=== PATIENT | female | born 1945 | race Caucasian/White ===

== ENCOUNTER 2017-01-26 09:09 | Emergency (ER) | payer MEDICARE ==
[2017-01-26] MEDS ORDERED: ACET-704 PO (09:39)
[2017-01-26] MEDS ORDERED: GABA600T2 PO ×2 (09:39→09:48)
[2017-01-26] MEDS ORDERED: LISI1TAB3 PO (09:40)
[2017-01-26] MEDS ORDERED: MELO15TA23 PO (09:48)
[2017-01-26] MEDS ORDERED: LISI1TAB5 PO (09:48)
[2017-01-26] MEDS ORDERED: METO50TA29 PO (09:48)
--- NOTE | 2017-01-26 09:58 | ED.ADGEN ---
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 Patient states that she last took medications Friday morning, has not taken medications Friday night, today or yesterday. Patient is very anxious, blood pressures noted to be 200/104, heart rate of 107, patient states that she did have a mild headache and some abdominal cramping yesterday, and did experience some loose stools, denies any urinary complaints, any numbness, weakness, tingling, chest pain, shortness breath, nausea or vomiting, injuries or other complaints. Patient states that primarily she is experiencing her chronic lower back pain, and is concerned about her elevated blood pressure. Patient states that she did contact her doctor who told her to go to the emergency department to receive her medications and a short course of prescription. Patient has a written list of medications. Review of Systems Review of Systems Constitutional: Denies fever or chills [] Eyes: Denies change in visual acuity, redness, or eye pain [] HENT: Denies nasal congestion or sore throat [] Respiratory: Denies cough or shortness of breath [] Cardiovascular: No additional information not addressed in HPI [] GI: Denies nausea, vomiting, bloody stools, 3 episodes of loose brown stool since yesterday. Mild abdominal cramping yesterday. : Denies dysuria or hematuria [] Musculoskeletal: Denies back pain or joint pain [] Integument: Denies rash or skin lesions [] Neurologic: Denies focal weakness or sensory changes. Mild frontal headache yesterday. [] Endocrine: Denies polyuria or polydipsia [] Current Medications Current Medications Current Medications Medications (Trade) Dose Ordered Sig/Daivd Start Time Stop Time Status Last Admin Dose Admin Gabapentin (Neurontin) 600 mg 1X ONCE 01/26/17 10:00 01/26/17 10:01 DC 01/26/17 10:02 600 MG Hydrochlorothiazide (Hydrodiuril) 12.5 mg 1X ONCE 10/22/17 10:00 01/26/17 10:01 DC 01/26/17 10:00 12.5 MG Lisinopril (Prinivil) 20 mg 1X ONCE 01/26/17 10:00 01/26/17 10:01 DC 01/26/17 10:03 20 MG Meloxicam (Mobic) 15 mg 1X ONCE 01/26/17 10:00 01/26/17 10:01 DC 01/26/17 10:01 15 MG Metoprolol Succinate (Toprol Xl) 50 mg 1X ONCE 01/26/17 10:00 01/26/17 10:01 DC 01/26/17 10:04 50 MG Allergies Allergies Allergies Coded Allergies Type Severity Reaction Last Updated Verified latex Allergy Unknown 01/26/17 Yes Physical Exam Physical Exam Constitutional: Well developed, well nourished, no acute distress, non-toxic appearance. [] HENT: Normocephalic, atraumatic, bilateral external ears normal, oropharynx moist, no oral exudates, nose normal. [] Eyes: PERRLA, EOMI, conjunctiva normal, no discharge. [] Neck: Normal range of motion, no tenderness, supple, no stridor. [] Cardiovascular:Heart rate regular rhythm, no murmur , S1, S2, no rubs or gallops.[] Lungs & Thorax: Bilateral breath sounds clear to auscultation, no wheezing, rhonchi, rales. No chest wall crepitus or tenderness. [] Abdomen: Bowel sounds normal, soft, no tenderness, no rebound, rigidity, no guarding, no masses, no pulsatile masses. [] Skin: Warm, dry, no erythema, no rash. [] Back: No tenderness, no CVA tenderness. [] Extremities: No tenderness, no cyanosis, no clubbing, ROM intact, no edema. Negative Homans sign. [] Neurologic: Alert and oriented X 3, normal motor function, normal sensory function, no focal deficits noted. [] Psychologic: Patient is anxious, judgement normal, mood normal. [] Current Patient Data Vital Signs Vital Signs Date Time Temp Pulse Resp B/P (MAP) Pulse Ox O2 Delivery O2 Flow Rate FiO2 01/26/17 10:10 91 16 183/85 (117) 98 Room Air 01/26/17 09:17 97.7 EKG EKG Not indicated.[] Radiology/Procedures Radiology/Procedures [] Course & Med Decision Making Course & Med Decision Making Pertinent Labs and Imaging studies reviewed. (See chart for details) Patient relieved that she'll be able to obtain her medications, patient states that she understands that a prescription for her codeine would not be dispensed from the emergency department, and is agreeable with plan to receive her lisinopril hydrochlorothiazide, metoprolol, gabapentin, and meloxicam in the emergency department, and also a 5 day prescription for these medications. Patient with a normal neurologic examination, is complaining of a mild exacerbation of her typical back pain due to "bulging disks", with no development of bowel or bladder incontinence, injuries, or other new or different symptoms that would require additional evaluation at this time. Discussed with patient that her looser stools may be due in part due to the lack of opiates for the past 2 days. Patient did receive her oral medications for blood pressure and her gabapentin and meloxicam in the ED without issue. Repeat blood pressure is 183/85 at time of administration of medications, heart rate is 91. We did discuss concerning symptoms that would prompt return to the emergency department for additional evaluation, patient voiced understanding and agreement. She is feeling more relieved now that her blood pressure is improved and she has prescriptions for the next several days. Discharged with prescriptions, precautions, instructions as stated. Final Impression Final Impression [] Problems: Dragon Disclaimer Dragon Disclaimer This electronic medical record was generated, in whole or in part, using a voice recognition dictation system. Departure: Impression: Primary Impression: Hypertension Additional Impressions: Noncompliance with medication regimen Chronic back pain Disposition: 01 HOME, SELF-CARE Condition: IMPROVED Scripts Meloxicam (MELOXICAM) 15 Mg Tablet 15 MG PO DAILY, #5 TAB Prov: ASHOK YOON DO 01/26/17 Gabapentin (GABAPENTIN) 600 Mg Tablet 600 MG PO BID, #10 TAB Prov: ASHOK YOON DO 01/26/17 Metoprolol Succinate (METOPROLOL SUCCINATE ( XL )) 50 Mg Tab.er.24h 1 TAB PO DAILY, #5 TAB 0 Refills Prov: ASHOK YOON DO 01/26/17 Lisinopril/Hydrochlorothiazide (LISINOPRIL-HCTZ 20-12.5 MG TAB) 1 Each Tablet 1 TAB PO DAILY, #5 TAB 0 Refills Prov: ASHOK YOON DO 01/26/17 ASHOK YOON DO Jan 26, 2017 09:58
[2017-01-26] MEDS ORDERED: GABAPENTIN 300 MG CAPSULE. PO ONE (10:00)
[2017-01-26] MEDS ORDERED: LISINOPRIL 20 MG TABLET PO ONE (10:00)
[2017-01-26] MEDS ORDERED: MELOXICAM 15 MG TABLET. PO ONE (10:00)
[2017-01-26] MEDS ORDERED: hydroCHLOROthiazide 25 MG TABLET PO ONE (10:00)
[2017-01-26] MEDS ORDERED: METOPROLOL SUCC 24HR ER 25 MG TAB.ER.24H. PO ONE (10:00)
[2017-01-26] MEDS ORDERED: GABAPENTIN 100 MG CAPSULE. PO ONE (10:00)
[2017-01-26 10:10] VITALS: BP 183/85
== END 2017-01-26 10:20 | disposition home or self-care (01) ==
LOC: ER 09:09
DX: I10 Essential (primary) hypertension (principal); G89.29 Other chronic pain; E78.00 Pure hypercholesterolemia, unspecified; M54.89 Other dorsalgia; Z91.14 Patient's other noncompliance with medication regimen; Z91.040 Latex allergy status
CPT/HCPCS: 29125; 99284-25